=== PATIENT | female | born 1995 | race Caucasian/White ===

== ENCOUNTER 2017-02-25 21:33 | Emergency (ER) | payer OTHER ==
--- NOTE | 2017-02-25 22:09 | EDPHY ---
H & P Stated Complaint: mouth pain Time Seen by Provider: 02/25/17 21:54 HPI/ROS: CHIEF COMPLAINT: Body aches joint pain with swelling, mouth ulcers HISTORY OF PRESENT ILLNESS: This is a 21-year-old female presenting to the emergency department complaining of joint swelling body ache fatigue. 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 Patient states symptoms have worsened intermittent fever , fatigue generalized weakness, increase in joint pain and joint swelling REVIEW OF SYSTEMS: Constitutional: fever, chills, fatigue malaise Eyes: No discharge. ENT: No sore throat. Mouth ulcers Cardiovascular: No chest pain, no palpitations. Respiratory: No cough, no shortness of breath. Gastrointestinal: No abdominal pain, no vomiting. Genitourinary: No hematuria. Musculoskeletal: No back pain. Body aches, joint pain, generalized weakness Skin: rashes bilateral lower extremities Neurological: headache. Source: Patient, Family - Personal History LMP (Females 10-55): 15-21 Days Ago Current Tetanus/Diphtheria Vaccine: Unsure - Medical/Surgical History Hx Asthma: No Hx Chronic Respiratory Disease: No Hx Diabetes: No Hx Cardiac Disease: No Hx Renal Disease: No Hx Cirrhosis: No Hx Alcoholism: No Hx HIV/AIDS: No Hx Splenectomy or Spleen Trauma: No Other PMH: wisdom teeth removed, colonoscopy - Social History Smoking Status: Never smoked - Physical Exam Exam: General Appearance: Awake no distress. Eyes: Pupils equal and round no pallor or injection. ENT, Mouth: Mucous membranes dry, ulcers noted posterior oropharynx, gums, and lips Respiratory: There are no retractions, lungs are clear to auscultation. Cardiovascular: Regular rate and rhythm. Gastrointestinal: Abdomen is soft and nontender, no masses, bowel sounds normal. Neurological: No focal deficits Skin: Warm and dry. Bilateral lower extremity rash Musculoskeletal: Neck is supple nontender. Extremities: symmetrical, full range of motion with pain. Bilateral knee swelling, ankle swelling Psychiatric: Patient is oriented X 3, there is no agitation. Constitutional: Initial Vital Signs Temperature (C) 37.0 C 02/25/17 21:36 Heart Rate 98 02/25/17 21:36 Respiratory Rate 18 02/25/17 21:36 Blood Pressure 99/78 L 02/25/17 21:36 O2 Sat (%) 96 02/25/17 21:36 O2 Delivery Mode Room Air Allergies/Adverse Reactions: No Known Allergies Allergy (Unverified 07/31/11 20:38) Home Medications: Medication Instructions Recorded NO HOME MEDICATIONS 03/06/11 Fluconazole [Diflucan (*)] 150 mg PO ONCE #0 tab 02/26/17 Medical Decision Making ED Course/Re-evaluation: Discussed the plan of care: CBC, BMP, UA, CRP, IV fluids 0100: Patient re-evaluated feeling better patient of fluids given. 0130: Patient doing better, reports feeling better. Nonlabored respiratory effort ambulatory without difficulty. Discussed discharge instructions with patient--> stable. Follow up with primary care or if any symptoms worsen return here to the emergency department. Patient agreed with plan Differential Diagnosis: Other differential diagnosis considered but not limited to influenza, sepsis, and dehydration - Data Points Laboratory Results: Laboratory Results 02/25/17 22:15 02/25/17 22:15 02/25/17 02/25/17 02/25/17 22:15 22:15 22:15 WBC 8.03 10^3/uL 10^3/uL (3.80-9.50) RBC 4.03 10^6/uL L 10^6/uL (4.18-5.33) Hgb 12.3 g/dL L g/dL (12.6-16.3) Hct 36.0 % L % (38.0-47.0) MCV 89.3 fL fL (81.5-99.8) MCH 30.5 pg pg (27.9-34.1) MCHC 34.2 g/dL g/dL (32.4-36.7) RDW 12.5 % % (11.5-15.2) Plt Count 291 10^3/uL 10^3/uL (150-400) MPV 10.1 fL fL (8.7-11.7) Neut % (Auto) 69.3 % % (39.3-74.2) Lymph % (Auto) 17.3 % % (15.0-45.0) Ness % (Auto) 12.6 % % (4.5-13.0) Eos % (Auto) 0.2 % L % (0.6-7.6) Baso % (Auto) 0.4 % % (0.3-1.7) Nucleat RBC Rel Count 0.0 % % (0.0-0.2) Absolute Neuts (auto) 5.56 10^3/uL 10^3/uL (1.70-6.50) Absolute Lymphs (auto) 1.39 10^3/uL 10^3/uL (1.00-3.00) Absolute Monos (auto) 1.01 10^3/uL H 10^3/uL (0.30-0.80) Absolute Eos (auto) 0.02 10^3/uL L 10^3/uL (0.03-0.40) Absolute Basos (auto) 0.03 10^3/uL 10^3/uL (0.02-0.10) Absolute Nucleated RBC 0.00 10^3/uL 10^3/uL (0-0.01) Immature Gran % 0.2 % % (0.0-1.1) Immature Gran # 0.02 10^3/uL 10^3/uL (0.00-0.10) Sodium 135 mEq/L mEq/L (134-144) Potassium 3.7 mEq/L mEq/L (3.5-5.2) Chloride 103 mEq/L mEq/L (97-110) Carbon Dioxide 23 mEq/l mEq/l (22-31) Anion Gap 9 mEq/L mEq/L (8-16) BUN 9 mg/dL mg/dL (7-23) Creatinine 0.8 mg/dL mg/dL (0.6-1.0) Estimated GFR > 60 Glucose 81 mg/dL mg/dL (70-100) Calcium 8.9 mg/dL mg/dL (8.5-10.4) C-Reactive Protein 111.6 mg/L H mg/L (<10.0) Beta HCG, Qual NEGATIVE Urine Color Urine Appearance Urine pH Ur Specific [place] Urine Protein Urine Ketones Urine Blood Urine Nitrate Urine Bilirubin Urine Urobilinogen Ur Leukocyte Esterase Urine RBC Urine WBC Ur Epithelial Cells Urine Glucose 02/25/17 01:00 WBC RBC Hgb Hct MCV MCH MCHC RDW Plt Count MPV Neut % (Auto) Lymph % (Auto) Ness % (Auto) Eos % (Auto) Baso % (Auto) Nucleat RBC Rel Count Absolute Neuts (auto) Absolute Lymphs (auto) Absolute Monos (auto) Absolute Eos (auto) Absolute Basos (auto) Absolute Nucleated RBC Immature Gran % Immature Gran # Sodium Potassium Chloride Carbon Dioxide Anion Gap BUN Creatinine Estimated GFR Glucose Calcium C-Reactive Protein Beta HCG, Qual Urine Color YELLOW Urine Appearance MODERATELY TURBID Urine pH 5.0 (5.0-7.5) Ur Specific [place] 1.025 (1.002-1.030) Urine Protein 1+ H (NEGATIVE) Urine Ketones 1+ H (NEGATIVE) Urine Blood NEGATIVE (NEGATIVE) Urine Nitrate NEGATIVE (NEGATIVE) Urine Bilirubin NEGATIVE (NEGATIVE) Urine Urobilinogen 2.0 EU H EU (0.2-1.0) Ur Leukocyte Esterase 3+ H (NEGATIVE) Urine RBC Pending Urine WBC Pending Ur Epithelial Cells Pending Urine Glucose NEGATIVE (NEGATIVE) Medications Given: Discontinued Medications Hydrocodone Bitart/Acetaminophen (Hycet Oral Liquid) 15 ml PO EDNOW ONE Stop: 02/25/17 22:11 Last Admin: 02/25/17 22:16 Dose: 15 ml Fluconazole (Diflucan) 150 mg PO ONCE ONE Stop: 02/26/17 00:53 Last Admin: 02/26/17 01:06 Dose: 150 mg Sodium Chloride (Ns) 1,000 mls @ 0 mls/hr IV ONCE ONE PRN Reason: Wide Open Stop: 02/25/17 22:11 Last Admin: 02/25/17 22:16 Dose: 1,000 mls Sodium Chloride (Ns) 1,000 mls @ 0 mls/hr IV ONCE ONE PRN Reason: Wide Open Stop: 02/26/17 00:15 Last Admin: 02/26/17 00:24 Dose: 1,000 mls Morphine Sulfate (Morphine) 1 mg IVP EDNOW ONE Stop: 02/25/17 23:57 Last Admin: 02/25/17 23:56 Dose: 1 mg Departure - Departure Disposition: Home, Routine, Self-Care Clinical Impression: Viral syndrome, Stomatitis and mucositis, unspecified Condition: Good Instructions: Oxycodone/Acetaminophen (By mouth), Dehydration in Children (ED) , Oral Candidiasis (ED), Oral Mucositis (ED), Viral Syndrome in Children (ED) Additional Instructions: Discussed discharge instructions 1. Rest, increase fluid intake 2. Ibuprofen and Tylenol as needed 3. Continue with the acyclovir as prescribed by your previous provider 4. I have given you a prescription for a Magic mouthwash use at several times daily this will help with the lesions in her mouth Magic mouthwash 5-10ml gargle and swish and spit every 6 hours as needed viscous lidocaine2% 80ml Mylanta 80 mL Diphenhydramine 12.5mg per 5 ml elixer 80 mL Nystatin 100,000U suspension 80 ml Prednisolone 15mg per 5 mL solution 80ml Referrals: Angela Benedict PA [Primary Care Provider] - As per Instructions Prescriptions: Fluconazole [Diflucan (*)] 150 mg PO ONCE #0 tab
[2017-02-25] MEDS ORDERED: NS 1,000 ML IV ONE (22:10)
[2017-02-25] MEDS ORDERED: HYDROCOD/APAP 7.5/325 IN 15ML UDCUP PO ONE (22:10)
[2017-02-25 22:26] LABS: % IMMATURE GRANULYOCYTES 0.2 % (0.0-1.1); ABSOLUTE IMMATURE GRANULOCYTES 0.02 10^3/uL (0.00-0.10); ADD DIFF? NO; ADD MORPH? NO; ADD SCAN? NO; ATYPICAL LYMPHOCYTE FLAG 0 (0-99); FRAGMENT RBC FLAG 0 (0-99); HEMOGLOBIN 12.3 g/dL (12.6-16.3); LEFT SHIFT FLG 0 (0-99); LIPEMIA HEMOLYSIS FLAG 90 (0-99); MEAN CELL HEMOGLOBIN 30.5 pg (27.9-34.1); MEAN CELL HEMOGLOBIN CONCENTR. 34.2 g/dL (32.4-36.7); MEAN CELL VOLUME 89.3 fL (81.5-99.8); MEAN PLATELET VOLUME 10.1 fL (8.7-11.7); PLATELET CLUMPS FLAG 10 (0-99); PLATELET COUNT 291 10^3/uL (150-400); RED BLOOD CELL COUNT 4.03 10^6/uL (4.18-5.33); RED CELL DISTRIBUTION WIDTH 12.5 % (11.5-15.2)
[2017-02-25 22:42] LABS: ANION GAP 9 mEq/L (8-16); CALCIUM 8.9 mg/dL (8.5-10.4); CARBON DIOXIDE 23 mEq/l (22-31); CHLORIDE 103 mEq/L (97-110); CREATININE 0.8 mg/dL (0.6-1.0); GLOMERULAR FILTRATION RATE > 60; GLUCOSE 81 mg/dL (70-100); POTASSIUM 3.7 mEq/L (3.5-5.2); SODIUM 135 mEq/L (134-144)
[2017-02-25 23:13] LABS: C-REACTIVE PROTEIN 111.6 mg/L (<10.0)
[2017-02-26] MEDS ORDERED: NS 1,000 ML IV ONE (00:14)
[2017-02-26 00:31] VITALS: RESP 16
[2017-02-26] MEDS ORDERED: FLUCONAZOLE 150 MG TAB PO ONE (00:52)
[2017-02-26 01:18] LABS: COLOR YELLOW; LEUKOCYTE ESTERASE,URINE 3+ (NEGATIVE); NITRITE,URINE NEGATIVE (NEGATIVE)
[2017-02-26] MEDS ORDERED: OXYCODONE/APAP 5/325MG PREPACK#4 BTL TAKEHOME ONE (01:19)
[2017-02-26 01:26] LABS: BACTERIA TRACE /hpf (NONE SEEN); MUCUS 1+ /lpf (NONE-1+); RBC,URINE 15-25 /hpf (0-3); WBC,URINE 50-182 /hpf (0-3)
[2017-02-26 01:46] VITALS: BP 106/67; PULSE 64; TEMP 99.1; O2SAT 96
== END 2017-02-26 01:45 | disposition home or self-care (01) ==
DX: B34.9 Viral infection, unspecified (principal); K12.1 Other forms of stomatitis; K12.30 Oral mucositis (ulcerative), unspecified
CPT/HCPCS: 96374

== ENCOUNTER 2017-04-16 10:36 | Observation (INO) | payer OTHER ==
[2017-04-16 11:35] LABS: % IMMATURE GRANULYOCYTES 0.2 % (0.0-1.1); ABSOLUTE IMMATURE GRANULOCYTES 0.02 10^3/uL (0.00-0.10); ADD DIFF? NO; ADD MORPH? NO; ADD SCAN? NO; ATYPICAL LYMPHOCYTE FLAG 0 (0-99); FRAGMENT RBC FLAG 0 (0-99); HEMATOCRIT 40.8 % (38.0-47.0); HEMOGLOBIN 13.5 g/dL (12.6-16.3); LEFT SHIFT FLG 0 (0-99); LIPEMIA HEMOLYSIS FLAG 80 (0-99); MEAN CELL HEMOGLOBIN 29.3 pg (27.9-34.1); MEAN CELL HEMOGLOBIN CONCENTR. 33.1 g/dL (32.4-36.7); MEAN CELL VOLUME 88.7 fL (81.5-99.8); MEAN PLATELET VOLUME 9.7 fL (8.7-11.7); PLATELET CLUMPS FLAG 0 (0-99); PLATELET COUNT 348 10^3/uL (150-400); RED CELL DISTRIBUTION WIDTH 13.4 % (11.5-15.2)
[2017-04-16] MEDS ORDERED: IOPAMIDOL (ISOVUE-300) 100 ML BTL ONE (11:57)
[2017-04-16] MEDS ORDERED: ERTAPENEM 1 GM in NS 100 ML IV ONE (12:59)
--- NOTE | 2017-04-16 13:05 | EDPHY ---
H & P Stated Complaint: Intermittant abdo pain for 15 days, contipation Time Seen by Provider: 04/16/17 10:44 HPI/ROS: CHIEF COMPLAINT: Abdominal pain HISTORY OF PRESENT ILLNESS: 21-year-old female presents emergency department complaining of abdominal pain. Patient reports a 15 day history of constipation and abdominal pain. Patient has a history of chronic abdominal pain. She has been diagnosed with irritable bowel syndrome. Patient states she had a fever to 102 yesterday and 101.8 the day before. She reports nausea, no appetite. She denies urinary frequency, urgency or dysuria, no vaginal discharge. Patient reports she did a colonoscopy bowel prep 2 days ago to help her have a bowel movement and she still was unable to have a BM. She denies history of abdominal surgeries. REVIEW OF SYSTEMS: A comprehensive 10 point review of systems is otherwise negative aside from elements mentioned in the history of present illness. Source: Patient Exam Limitations: No limitations - Personal History LMP (Females 10-55): 8-14 Days Ago Current Tetanus Diphtheria and Acellular Pertussis (TDAP): Yes - Medical/Surgical History Hx Asthma: No Hx Chronic Respiratory Disease: No Hx Diabetes: No Hx Cardiac Disease: No Hx Renal Disease: No Hx Cirrhosis: No Hx Alcoholism: No Hx HIV/AIDS: No Hx Splenectomy or Spleen Trauma: No Other PMH: wisdom teeth removed, colonoscopy. IBS. - Social History Smoking Status: Never smoked - Physical Exam Exam: Physical Exam Gen: Alert and Oriented, NAD HEENT: PERRL, moist mucous membranes NECK: no meningismus CV: regular rate and regular rhythm PULM: CTAB, no wheezes ABDOMEN: soft, lower abdominal tenderness to palpation, positive rebound tenderness, positive guarding BACK: No CVA tenderness NEURO: Neurologically grossly intact EXTREMITIES: normal appearing SKIN: no rash or break in skin on exposed skin PSYCH: answers questions appropriately. Constitutional: Initial Vital Signs Temperature (C) 36.5 C 04/16/17 10:37 Heart Rate 90 04/16/17 10:37 Respiratory Rate 16 04/16/17 10:37 Blood Pressure 102/81 H 04/16/17 10:37 O2 Sat (%) 97 04/16/17 10:37 O2 Delivery Mode Room Air Allergies/Adverse Reactions: No Known Allergies Allergy (Unverified 07/31/11 20:38) Home Medications: Medication Instructions Recorded RX: Hydrocodone/APAP 5/325 [Leota 1 - 2 tab PO Q4 PRN #20 tab 04/18/17 5/325 (*)] Medical Decision Making ED Course/Re-evaluation: IV established, CBC, chemistry panel, test obtained, CT abdomen pelvis ordered to evaluate appendix due to such moderate tenderness in her right lower quadrant. Urinalysis ordered. 1pm-CT shows an acute appendicitis. Dr. Rodriguez has been consulted. I have ordered Invanz. Patient and mother are aware of plan. - Data Points Laboratory Results: Laboratory Results 04/16/17 11:27 Medications Given: Discontinued Medications Hydrocodone Bitart/Acetaminophen (Leota 5/325) 1 - 2 tab PO Q4 PRN PRN Reason: Pain, Moderate Able to Take PO Stop: 04/26/17 17:08 Last Admin: 04/18/17 09:33 Dose: 1 tab Enoxaparin Sodium (Lovenox) 40 mg SC DAILY NAVYA Stop: 10/14/17 08:59 Last Admin: 04/17/17 11:54 Dose: Not Given Fentanyl (Sublimaze) 25 - 50 mcg IVP Q5M PRN PRN Reason: PACU, Pain Severe Stop: 04/16/17 16:05 Last Admin: 04/16/17 16:32 Dose: 50 mcg Hydromorphone HCl (Dilaudid) 0.2 - 0.4 mg IVP Q1 PRN PRN Reason: Pain, Severe Unable to Take PO Stop: 04/26/17 17:08 Last Admin: 04/16/17 18:38 Dose: 0.2 mg Ertapenem 1 gm/ Sodium (Chloride) 100 mls @ 200 mls/hr IV EDNOW ONE PRN Reason: Protocol Stop: 04/16/17 13:28 Last Admin: 04/16/17 13:25 Dose: 100 mls Lactated Ringer's (Lr) 1,000 mls @ 0 mls/hr IV ONCE ONE PRN Reason: As Directed Stop: 04/16/17 14:40 Last Admin: 04/16/17 18:05 Dose: Not Given Ertapenem 1 gm/ Sodium (Chloride) 100 mls @ 200 mls/hr IV DAILY NAVYA PRN Reason: Protocol Stop: 05/18/17 08:59 Last Admin: 04/18/17 09:33 Dose: 100 mls Ketorolac Tromethamine (Toradol) 15 mg IVP Q6 NAVYA Stop: 04/21/17 17:59 Last Admin: 04/18/17 04:39 Dose: 15 mg Magnesium Hydroxide (Milk Of Magnesia) 30 ml PO DAILY PRN; Protocol PRN Reason: Constipation Stop: 10/14/17 12:01 Last Admin: 04/17/17 20:49 Dose: 30 ml Midazolam HCl (Versed) 2 mg IVP ONCALL ONE Stop: 04/16/17 14:16 Last Admin: 04/16/17 16:41 Dose: Not Given Ondansetron HCl (Zofran) 2 - 4 mg IVP Q10M PRN PRN Reason: PACU, Nausea/Vomiting Stop: 04/16/17 16:05 Last Admin: 04/16/17 16:22 Dose: 4 mg Ondansetron HCl (Zofran) 4 mg IVP Q4 PRN PRN Reason: Nausea/Vomiting, Can't Take PO Stop: 10/13/17 17:08 Last Admin: 04/17/17 19:49 Dose: 4 mg Senna/Docusate Sodium (Senokot-S) 1 - 2 tab PO BID NAVYA PRN Reason: Protocol Stop: 10/14/17 20:59 Last Admin: 04/18/17 09:33 Dose: 1 tab Simethicone (Mylicon) 80 mg PO PCHS NAVYA Stop: 10/14/17 12:59 Last Admin: 04/18/17 10:44 Dose: Not Given Departure - Departure Disposition: To OP Cath/Surgery Clinical Impression: Acute appendicitis Qualifiers: Acute appendicitis type: with localized peritonitis Qualified Code(s): K35.3 - Acute appendicitis with localized peritonitis Condition: Good
[2017-04-16] MEDS ORDERED: BUPIVACAINE 0.5% 30 ML SDV ONE (13:49)
[2017-04-16] MEDS ORDERED: MIDAZOLAM 2 MG/2 ML VIAL IVP ONE (14:15)
--- NOTE | 2017-04-16 14:17 | PDANEPAE ---
ANE History of Present Illness Patient presents for emergent Lap appy GOYO Past Medical History - Pulmonary History Hx Oxygen in Use at Home: No - Endocrine History Hx Diabetes: No ANE Review of Systems - Exercise capacity Exercise capacity: >=4 METS ANE Patient History - Allergies Allergies/Adverse Reactions: No Known Allergies Allergy (Unverified 07/31/11 20:38) - Home Medications Home Medications: NK [No Known Home Meds] 04/16/17 [Last Taken Unknown] - NPO status NPO Since - Liquids (Date): 04/15/17 NPO Since - Liquids (Time): 22:00 NPO Since - Solids (Date): 04/15/17 NPO Since - Solids (Time): 06:00 - Smoking Hx Smoking Status: Never smoked ANE Labs/Vital Signs - Labs Result Diagrams: 04/16/17 11:27 - Vital Signs Blood Pressure: 119/71 Heart Rate: 68 Respiratory Rate: 14 O2 Sat (%): 98 Height: 167.64 cm Weight: 56.699 kg ANE Physical Exam - Airway Neck exam: FROM Mallampati Score: Class 1 Mouth exam: normal dental/mouth exam - Pulmonary Pulmonary: no respiratory distress - Cardiovascular Cardiovascular: regular rate and rhythym - ASA Status ASA Status: I ANE Anesthesia Plan Anesthesia Plan: general endotracheal anesthesia (RBA discussed)
[2017-04-16] MEDS ORDERED: MIDAZOLAM 2 MG/2 ML VIAL ONE (14:18)
[2017-04-16] MEDS ORDERED: fentaNYL 100 MCG/2 ML INJ ONE ×3 (14:20→16:18)
[2017-04-16] MEDS ORDERED: LIDOCAINE 2% 5 ML SDV ONE (14:21)
[2017-04-16] MEDS ORDERED: PROPOFOL 200 MG/20 ML VIAL ONE ×2 (14:21→14:52)
[2017-04-16] MEDS ORDERED: ROCURONIUM 50 MG/5 ML VIAL ONE ×2 (14:21→15:42)
[2017-04-16] MEDS ORDERED: LR 1,000 ML IV ONE (14:39)
[2017-04-16] MEDS ORDERED: DEXAMETHASONE 4 MG/ML VIAL ONE (14:49)
[2017-04-16] MEDS ORDERED: ONDANSETRON 4 MG/2 ML VIAL ONE ×2 (14:49→16:18)
[2017-04-16] MEDS ORDERED: PROMETHAZINE HCL 25 MG/ML INJ IVP PRN (15:04)
[2017-04-16] MEDS ORDERED: NALOXONE HCL 0.4 MG/ML INJ IVP PRN (15:04)
[2017-04-16] MEDS ORDERED: ONDANSETRON 4 MG/2 ML VIAL IVP PRN (15:04)
[2017-04-16] MEDS ORDERED: ACETAMINOPHEN 500 MG TAB PO PRN (15:04)
[2017-04-16] MEDS ORDERED: ALBUTEROL 3 ML DEYVIAL IH PRN (15:04)
[2017-04-16] MEDS ORDERED: HEPARIN 1000 UNIT/1 ML MDV ONE (15:22)
[2017-04-16] MEDS ORDERED: ceFAZolin 1 GM/5 ML SYR ONE (15:22)
[2017-04-16] MEDS ORDERED: SUGAMMADEX SODIUM 200 MG/2 ML VIAL IVP ONE (15:44)
[2017-04-16] MEDS: fentaNYL 100 MCG/2 ML INJ IVP PRN ×2 (16:19→16:32)
[2017-04-16] MEDS ORDERED: HYDROmorphONE/DILAUDID 1 MG/ML SYR IVP PRN (17:09)
[2017-04-16] MEDS ORDERED: NS W/ 20 KCl/L 1,000 ML IV SCH (17:15)
--- NOTE | 2017-04-16 18:07 | PDGENHP ---
History & Physical Chief Complaint: LOWER ABDOMINAL PAIN FOR 2 WEEKS History of Present Illness: 21-YEAR-OLD FEMALE WITH CHRONIC IBS SYMPTOMS FOR 15 + YEARS. NOW SHE PRESENTS WITH RIGHT LOWER QUADRANT PAIN LOWER ABDOMINAL CRAMPS FOR NEARLY 2 WEEKS. SHE HAS SOME ANOREXIA AND PAIN WITH WALKING AROUND BUT NO EMESIS AND NO SIGNIFICANT FEVER TODAY. SHE HAS HAD A TEMPERATURE OVER THE WEEKEND. CT SCAN REVEALS A MARKEDLY ENLARGED APPENDIX WITH INFLAMMATION. HIS ADMITTED AT THIS TIME FOR LAP APPY. SURGICAL RISKS AND OPTIONS BEEN FULLY DISCUSSED Pertinent Past, Social, Family History: PAST HISTORY IS NEGATIVE/MEDICINES WITHOUT/NO KNOWN ALLERGIES/REVIEW OF SYSTEMS IS NEGATIVE ON A FULL 10 POINT REVIEW OF SYSTEMS/. FAMILY HISTORY IS NONCONTRIBUTORY Relevant Physical Exam: AFEBRILE/IN NO ACUTE DISTRESS/HEENT WITHOUT ICTERUS OR ADENOPATHY OR ORAL LESIONS/CHEST CLEAR/CARDIAC EXAM REGULAR RHYTHM/. ABDOMEN IS SOFT WITH BOWEL SOUNDS BUT TENDER IN THE RIGHT LOWER QUADRANT WITH GUARDING/ EXTREMITIES ARE BENIGN Cardiorespiratory Assessment: PLAN IS LAPAROSCOPIC APPENDECTOMY. RISKS AND OPTIONS BEEN FULLY DISCUSSED AND SHE WISHES TO PROCEED
--- NOTE | 2017-04-16 18:09 | POSTOPPROG ---
Post Op Note Date of Operation: 04/16/17 Surgeon: Antolin Rodriguez Anesthesiologist: BENITA Anesthesia: GET(General Endotracheal) Pre-op Diagnosis: CHRONIC APPENDICITIS Post-op Diagnosis: SAME Indication: PAIN Procedure: LAP APPY AND PARTIAL CECECTOMY Findings: 2 CM CHRONIC APPENDICITIS INVOLVING THE APPENDICEAL BASE REQUIRING PARTIAL Inf/Abcess present in the surg proc area at time of surgery?: Yes Depth: Organ Space EBL: Minimal Complications: NONE Specimen(s): APPENDIX
[2017-04-16] MEDS: ONDANSETRON 4 MG/2 ML VIAL IVP PRN (19:55)
[2017-04-16] MEDS: HYDROCODONE/APAP 5/325 TAB PO PRN (19:55)
[2017-04-16] MEDS: KETOROLAC 15 MG/1 ML SDV IVP SCH (21:20)
[2017-04-17] MEDS: KETOROLAC 15 MG/1 ML SDV IVP SCH ×4 (03:43→22:33)
[2017-04-17] MEDS: HYDROCODONE/APAP 5/325 TAB PO PRN ×6 (03:43→22:33)
[2017-04-17] MEDS ORDERED: ENOXAPARIN 40 MG/0.4 ML SYR SC SCH (09:00)
[2017-04-17 10:25] LABS: COLOR YELLOW; LEUKOCYTE ESTERASE,URINE NEGATIVE (NEGATIVE); NITRITE,URINE NEGATIVE (NEGATIVE)
[2017-04-17 10:37] LABS: BACTERIA TRACE /hpf (NONE SEEN); MUCUS 3+ /lpf (NONE-1+)
[2017-04-17] MEDS ORDERED: POLYETHYLENE GLYCOL 3350 17 GM PKT PO PRN (12:02)
[2017-04-17] MEDS ORDERED: LACTULOSE 20 GM/30 ML UDCUP PO PRN (12:02)
[2017-04-17] MEDS ORDERED: BISACODYL 10 MG SUPP PR PRN (12:02)
[2017-04-17] MEDS ORDERED: MAGNESIUM HYDROXIDE 30 ML UDCUP PO PRN (12:02)
--- NOTE | 2017-04-17 12:06 | SOAPPROG ---
SOAP Progress Note Assessment/Plan: Assessment/Plan: 21 Y F s/p lap appy with cecectomy for extensive chronic appendicitis. POD#1. Regular diet. Bowel protocol. Simethicone. OOB, up ad akash. Continue pain control--extensive inflammation. Would like patient to stay for IV abx and further observation given the extent of her acute on chronic appendicitis. Pt at risk for abscess formation. Dispo: likely home in am with PO abx if does well. . S: c/o abdominal cramps. No BM, no N/V. Tolerating diet and hungry. O: alert, nad no wob abd soft, inc cdi, moderate tenderness and rebound 04/17/17 12:03 Objective: Vital Signs Temp Pulse Resp BP Pulse Ox 36.2 C 82 18 96/60 L 96 04/17/17 08:10 04/17/17 08:10 04/17/17 08:10 04/17/17 08:10 04/17/17 08:10 04/16/17 04/17/17 04/18/17 05:59 05:59 05:59 Intake Total 2680 Output Total 310 Balance 2370 ICD10 Worksheet Patient Problems: Problems Problem Status Onset Acute appendicitis Acute
[2017-04-17] MEDS: SIMETHICONE 80 MG TAB CHEW PO SCH ×3 (13:28→22:06)
[2017-04-17] MEDS: ONDANSETRON 4 MG/2 ML VIAL IVP PRN ×2 (19:49)
[2017-04-17] MEDS: SENNOSIDES/DOCUSATE SODIUM TAB PO SCH (21:30)
[2017-04-18] MEDS: KETOROLAC 15 MG/1 ML SDV IVP SCH (04:39)
--- NOTE | 2017-04-18 08:35 | SOAPPROG ---
SOAP Progress Note Assessment/Plan: Assessment/Plan: 21 Y F s/p lap appy with cecectomy for extensive chronic appendicitis. POD#2. Doing well. D/c tohome p IV abx dose. S: Pain better, eating well, +flatus, no n/v O: alert, nad no wob abd soft, inc cdi, appropriately ttp 04/18/17 08:34 Objective: Vital Signs Temp Pulse Resp BP Pulse Ox 36.6 C 72 20 100/61 95 04/18/17 02:40 04/18/17 02:40 04/18/17 02:40 04/18/17 02:40 04/18/17 02:40 04/17/17 04/18/17 04/19/17 05:59 05:59 05:59 Intake Total 2680 Output Total 310 Balance 2370 ICD10 Worksheet Patient Problems: Problems Problem Status Onset Acute appendicitis Acute
[2017-04-18] MEDS ORDERED: ERTAPENEM 1 GM in NS 100 ML IV SCH (09:00)
[2017-04-18] MEDS: SENNOSIDES/DOCUSATE SODIUM TAB PO SCH (09:33)
[2017-04-18] MEDS: HYDROCODONE/APAP 5/325 TAB PO PRN (09:33)
[2017-04-18 09:48] VITALS: BP 108/70; PULSE 76; RESP 16; TEMP 98; O2SAT 96
[2017-04-18] MEDS: SIMETHICONE 80 MG TAB CHEW PO SCH (10:44)
== END 2017-04-18 10:00 | disposition home or self-care (01) ==
LOC: INTOOBSV 12:58 → FOB 17:23
PROVIDERS: ADMIT Surgery; ATTEND Surgery
PROC: 0DTJ4ZZ Resection of Appendix, Percutaneous Endoscopic Approach (ICD-10-PCS; principal; 2017-04-16 14:45)
DX: K36 Other appendicitis (principal)
CPT/HCPCS: 44970; 74177; 96365; 99285; G0378; 82947-QW; J1100; J1170; J1335; J1885; J2250; J2405; J2704; J3010; Q9967